=== PATIENT | female | born 1990 | race Hispanic/Latino ===

== ENCOUNTER → 2019-03-12 | Outpatient (CLI) | payer OTHER ==
--- NOTE | 2019-03-12 12:03 | Diagnostic Imaging Report ---
EXAM: Transvaginal Pelvic Ultrasound INDICATION: ^Noninflammatory disorder of cervix uteri, unspecified COMPARISON: None TECHNIQUE: Grayscale transverse and sagittal transvaginal images were obtained of the pelvis. CLINICAL HISTORY: 28 year old A0; last menstrual period: 02/21/2019. FINDINGS: Uterus Orientation: Normal Size: 8.7 x 4.3 x 4.9 cm, Normal Mass: None Cervix: Normal Endometrium: Thickness: 0.3 cm, Normal. Appearance: Homogeneous echotexture without focal thickening. Right ovary: Size: 4.1 x 2.6 x 2.7 cm Mass/Cyst: None Left ovary: Size: 2.9 x 1.9 x 2.1 cm Mass/Cyst: None Adnexa: Normal Cul-de-sac: Small amount of free fluid, likely physiologic. IMPRESSION: Unremarkable pelvic ultrasound exam. Signed by: Dr. Fran Salazar MD on 03/12/2019 11:59 AM
--- NOTE | 2019-03-13 08:49 | Diagnostic Imaging Report ---
#[id number] - [facility] [place]TR[place] OF THE RIGHT BREAST : 03/12/2019 No prior exams were available for comparison. Color flow and real-time ultrasound were performed on the entire right breast with scanning in all four quadrants, retroareolar region and the right axilla. -There is no cystic or solid mass identified. IMPRESSION: NEGATIVE There is no sonographic evidence of malignancy. Follow-up with ACR/ACS guidelines. Hal Oneil Jr., D.O. cw/:03/12/2019 12:47:57 Moisture Machine Tender: Rosaura Lovell RDMS, [facility] letter sent: Normal Exam Ultrasound BI-RADS: 1 Negative
--- NOTE | 2019-03-13 08:49 | Diagnostic Imaging Report ---
#[id number] - [facility] ULTRASOUND OF THE LEFT BREAST : 03/12/2019 No prior exams were available for comparison. Color flow and real-time ultrasound were performed on the entire left breast with scanning in all four quadrants, retroareolar region and the left axilla. -There is no cystic or solid lesions identified. -Several enlarged left axillary lymph nodes are noted with normal appearing architexture. The two largest measure 1.0 x 0.5 x 1.0 cm and 1.4 x 0.6 x 0.8 cm. IMPRESSION: BENIGN There is no sonographic evidence of malignancy. Follow-up with ACR/ACS guidelines. Hal Oneil Jr., D.O. cw/:03/12/2019 12:52:22 Fighter Pilot: Rosaura Lovell [facility], [facility] letter sent: Normal Exam Ultrasound BI-RADS: 2 Benign
== END ==
LOC: US 10:43
PROVIDERS: ATTEND Internal Medicine
DX: N60.12 Diffuse cystic mastopathy of left breast (principal); N60.11 Diffuse cystic mastopathy of right breast; N88.9 Noninflammatory disorder of cervix uteri, unspecified
CPT/HCPCS: 76830

== ENCOUNTER → 2019-12-27 | Outpatient (CLI) | payer OTHER ==
--- NOTE | 2019-12-27 10:37 | Diagnostic Imaging Report ---
Pelvic ultrasound. History: Menorrhagia, LMP 11/20/2019. Comparison: 03/12/2019. Discussion: Transabdominal and transvaginal evaluation of the pelvis was performed in the transverse and longitudinal planes. The uterus is normal in size measuring 9.2 x 4.0 x 5.5 cm. The endometrial stripe is within normal limits at 6 mm. The right ovary measures 5.4 x 2.5 x 3.2 cm and contains a 2.4 cm dominant follicle, no follow-up imaging recommended. The left ovary measures 3.9 x 1.8 x 2.3 cm. There is no evidence of an adnexal mass. There is no evidence of free fluid. IMPRESSION: Normal pelvic ultrasound. Signed by: Yash Lal on 12/27/2019 10:35 AM
== END ==
LOC: US 09:00
PROVIDERS: ATTEND Internal Medicine
DX: N92.1 Excessive and frequent menstruation with irregular cycle (principal)
CPT/HCPCS: 76856

== ENCOUNTER → 2025-01-07 | Day surgery (SDC) | payer OTHER ==
[~2025-01-07] MED LIST: CLARITIN10 MG PO; COQ-10100 MG PO; FENTANYL CITRATE/PF 100MCG/2 ML INJ ONE; LIDOCAINE HCL 2% LOCAL INJ 5 ML SDV VIAL INJ ONE; METOCLOPRAMIDE HCL 10 MG/2ML VIAL ONE; MULTI-VITAMIN1 EACH PO; PANTOPRAZOLE SO40 MG PO; PROPOFOL IV EMULSION 10 MG/ML 20 ML VIAL ONE
[2025-01-07] MEDS: LACTATED RINGER'S 1,000 ML ONE (13:21)
[2025-01-07 15:25] VITALS: BP 118/71; PULSE 76; RESP 16; TEMP 97.2; O2SAT 99
== END | disposition home or self-care (01) ==
LOC: OR 13:03
PROVIDERS: ATTEND Internal Medicine Gastroenterology
DX: K29.50 Unspecified chronic gastritis without bleeding (principal); B96.81 Helicobacter pylori [H. pylori] as the cause of diseases classified elsewhere; K20.90 Esophagitis, unspecified without bleeding; K21.9 Gastro-esophageal reflux disease without esophagitis; R19.5 Other fecal abnormalities; Z71.3 Dietary counseling and surveillance; Z71.89 Other specified counseling; M06.9 Rheumatoid arthritis, unspecified; M19.90 Unspecified osteoarthritis, unspecified site; Z68.29 Body mass index [BMI] 29.0-29.9, adult
CPT/HCPCS: 43239; 81025; J2003; J2470; J2704; J2765; J3010; J7121